=== PATIENT | female | born 1940 | race Caucasian/White ===

== ENCOUNTER 2018-01-15 09:59 | Inpatient (IN) | payer OTHER ==
--- NOTE | 2018-01-08 13:58 | HP ---
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 History Source: Patient Limitations to Obtaining History: No Limitations - Past Medical History Cardiovascular: Yes: Hyperlipdemia Gastrointestinal: Yes: GERD Musculoskeletal: Yes: Other (osteopenia) ENT: Yes: Other (allergies) Endocrine: Yes: Hypothyroidism - Past Surgical History Past Surgical History: Yes: Appendectomy, Stent (cardiac stents 2004) - Smoking History Smoking history: Never smoked Have you smoked in the past 12 months: No - Alcohol/Substance Use Hx Alcohol Use: Yes (social) Home Medications - Allergies Allergies/Adverse Reactions: Allergies Allergy/AdvReac Type Severity Reaction Status Date / Time No Known Allergies Allergy Verified 01/08/18 14:00 - Home Medications Home Medications (free text): plavix 75 mg,fluticasone spray,levothyroxine, pantoprazole,metoprolol,memantime Family Disease History - Family Disease History Family History: Denies Physical Examination Constitutional: Yes: No Distress Breast(s): Yes: Other (decrease size of left breast subareolar cancer and decrease in size of left axillary adenopathy, right breast negative) Problem List - Problems (1) Breast cancer, left Code(s): C50.912 - MALIGNANT NEOPLASM OF UNSPECIFIED SITE OF LEFT FEMALE BREAST Qualifiers: Breast location: combined nipple and areola Patient sex: female Assessment/Plan Left modified radical mastectomy without reconstruction
[2018-01-08 14:52] VITALS: BMI 25.0
[2018-01-15] MEDS ORDERED: MIDAZOLAM HCL 2 MG/2 ML SINGLE DOSE VIAL ONE (15:03)
[2018-01-15] MEDS ORDERED: SCOPOLAMINE HYDROBROMIDE 1 PATCH PATCH.TD72 ONE (15:03)
[2018-01-15] MEDS ORDERED: ceFAZolin SODIUM 1 GM VIAL ONE (15:20)
[2018-01-15] MEDS ORDERED: METOPROLOL TARTRATE 5 MG/5 ML VIAL ONE (15:26)
[2018-01-15] MEDS ORDERED: DEXAMETHASONE SOD PHOSPHATE 4 MG/1 ML VIAL ONE ×2 (15:49)
[2018-01-15] MEDS ORDERED: ONDANSETRON 4 MG/2 ML VIAL ONE ×2 (15:49)
[2018-01-15] MEDS ORDERED: KETOROLAC TROMETHAMINE 30 MG/1 ML VIAL ONE (16:05)
[2018-01-15] MEDS ORDERED: ZOLPIDEM TARTRATE 5 MG TABLET PO PRN (17:25)
[2018-01-15] MEDS ORDERED: ACETAMINOPHEN 325 MG TABLET (FP) PO PRN (17:25)
[2018-01-15] MEDS ORDERED: ONDANSETRON 4 MG/2 ML VIAL IVPUSH PRN ×3 (17:25→17:27)
[2018-01-15] MEDS ORDERED: PROMETHAZINE HCL 25 MG/1 ML VIAL IVPUSH ONE (17:29)
[2018-01-15] MEDS ORDERED: PATIENT'S OWN MEDICATION (NON-FORMULARY) (Alendronate Sodium/Vitamin D3 [Fosamax Plus D 70 PO SCH (17:30)
[2018-01-15] MEDS ORDERED: HYDROmorphone *PCA* 10MG/50ML DISP.SYRIN PCA SCH (17:30)
[2018-01-15] MEDS ORDERED: DEXTROSE 5%-0.45% SALINE 1,000 ML IV SCH (17:30)
[2018-01-15] MEDS: CEFAZOLIN 1 GM/D5W 1 GM/50 ML BAG IVPB SCH (20:53)
[2018-01-15] MEDS ORDERED: ATORVASTATIN CA 20 MG TABLET (FP) PO SCH (22:00)
--- NOTE | 2018-01-16 00:02 | OP ---
DATE OF OPERATION: 01/15/2018 PREOPERATIVE DIAGNOSIS: Left breast cancer, inflammatory. POSTOPERATIVE DIAGNOSIS: Left breast cancer, inflammatory. PROCEDURE: Left modified radical mastectomy without reconstruction. ANESTHESIA: General, intubated. ATTENDING SURGEON: Gabriela Meneses MD CONSULTING BUSINESS DEVELOPER: MIKAYLA Owens ESTIMATED BLOOD LOSS: Minimal. COMPLICATIONS: None. PROCEDURE: Patient was made aware of the risks and benefits of the procedure and consented. She was placed in the supine position. After general anesthesia was induced, the patient was intubated. An elliptical incision was made around the nipple and erythema surrounding the nipple. Using electrocautery the skin flaps were raised superior to the clavicle, medial to the sternum, lateral to the latissimus dorsi, and inferior to the inframammary fold. Using electrocautery, the breast tissue was taken off of the pectoralis muscle bilaterally, extending to the latissimus dorsi. The clavipectoral fascia was identified and incised. Superiorly there was the axillary vein and along the thoracic wall was the long thoracic nerve, which was identified and retracted medially, laterally thoracodorsal trunk could be seen and retracted laterally. Tissue between the two were bluntly and sharply dissected free with hemostasis maintained by electrocautery and medium Hemoclips. The specimen was then submitted with a short suture superior, long suture lateral. Palpation of the rest of the axilla revealed no other suspicious lymph nodes. The wound was copiously irrigated with normal saline. Hemostasis was maintained by electrocautery. Two number 2 Clifton-Evangelista drains were placed and secured through the inferior stab wounds and sutured to the skin with 2-0 silk. Skin was then closed with interrupted 2-0 Vicryl followed by running simple deep 3-0 Vicryl followed by running subcuticular 4-0 Monocryl. Steri-Strips, sterile dressing, and a compression bra were then applied. The patient, having tolerated the procedure well, was transferred to the recovery room in excellent condition. GABRIELA MENESES M.D. [id number]
[2018-01-16] MEDS: CEFAZOLIN 1 GM/D5W 1 GM/50 ML BAG IVPB SCH ×2 (02:58→09:57)
[2018-01-16] MEDS ORDERED: LEVOTHYROXINE NA 75 MCG TABLET (FP) PO SCH (07:00)
[2018-01-16] MEDS ORDERED: HEPARIN NA (PORCINE) 5,000 UNITS/ML 1ML VIAL SQ SCH (08:00)
[2018-01-16 08:26] LABS: MCH 28.8 pg (25.7-33.7); MCHC 32.1 g/dl (32.0-36.0); MEAN CELL VOLUME 89.7 fl (80-96); MEAN PLT VOLUME 7.6 fl (7.5-11.1); PLATELET COUNT 193 K/MM3 (134-434); RBC 3.12 M/mm3 (3.60-5.2); RDW 21.3 % (11.6-15.6); WHITE BLOOD COUNT 11.5 K/mm3 (4.0-10.8)
--- NOTE | 2018-01-16 09:33 | PN ---
Progress Note, Physician Chief Complaint: S/P Left MRM POD#1 History of Present Illness: Patient was seen today at the bedside and reports good pain control. She is tolerating po well. - Current Medication List Current Medications: Active Medications Acetaminophen (Tylenol -) 650 mg PO Q4H PRN PRN Reason: FEVER Atorvastatin Calcium (Lipitor -) 20 mg PO HS [facility] Last Admin: 01/15/18 21:27 Dose: 20 mg Heparin Sodium (Porcine) (Heparin -) 5,000 unit SQ BID@0800,2000 [facility] Hydromorphone HCl (Dilaudid Backshoe Person -) 0 mg UNDERWEAR TRIMMER UNDERWEAR TRIMMER [facility]; Protocol Stop: 01/22/18 17:28 Last Admin: 01/15/18 18:05 Dose: 0.2 mg Cefazolin Sodium (Ancef 1 Gm Premixed Ivpb -) 1 gm in 50 mls @ 100 mls/hr IVPB Q6H [facility] Stop: 01/16/18 09:29 Last Admin: 01/16/18 02:58 Dose: 100 mls/hr Dextrose/Sodium Chloride (D5-1/2ns -) 1,000 mls @ 100 mls/hr IV ASDIR [facility] Last Admin: 01/15/18 19:30 Dose: 100 mls/hr Influenza Virus Vaccine Quadrival (Flulaval Quad [id number]) 60 mcg IM .ONCE ONE Stop: 01/16/18 11:01 Levothyroxine Sodium (Synthroid -) 75 mcg PO ACBK [facility] Last Admin: 01/16/18 06:37 Dose: 75 mcg Metoprolol Succinate (Toprol Xl -) 50 mg PO DAILY [facility] Ondansetron HCl (Zofran Injection) 4 mg IVPUSH Q6H PRN PRN Reason: NAUSEA AND/OR VOMITING Pantoprazole Sodium (Protonix -) 40 mg PO DAILY [facility] Zolpidem Tartrate (Ambien -) 5 mg PO HS PRN PRN Reason: Insomnia - Objective Vital Signs: Vital Signs Temperature 98.1 F 01/16/18 06:00 Pulse Rate 78 01/16/18 06:00 Respiratory Rate 20 01/16/18 06:00 Blood Pressure 116/60 01/16/18 06:00 O2 Sat by Pulse Oximetry (%) 95 01/16/18 06:56 Constitutional: Yes: Well Nourished, Calm Breast(s): Yes: Left (Left breast flap warm with moderate ecchymosis noted. Steristrips are C/D/I. JPs x 2 with serosanginous discharge.) Labs: CBC, BMP 01/16/18 08:00 Problem List - Problems (1) Breast cancer, left Code(s): C50.912 - MALIGNANT NEOPLASM OF UNSPECIFIED SITE OF LEFT FEMALE BREAST Qualifiers: Breast location: combined nipple and areola Patient sex: female Assessment/Plan Plan: OOB today with assistance. Pain control as per anesthesia. IS 10 xs hourly Continue axbx CARLITOS teaching plan for discharge in am
[2018-01-16] MEDS ORDERED: PATIENT'S OWN MEDICATION (NON-FORMULARY) (Simvastatin [Simvastatin] 40 MG) PO SCH (10:00)
[2018-01-16] MEDS ORDERED: PANTOPRAZOLE 40 MG TABLET (FP) PO SCH (10:00)
[2018-01-16] MEDS ORDERED: FLU VACCINE QUAD 60 MCG/0.5 ML (MDV 18-19) IM ONE (11:00)
--- NOTE | 2018-01-16 11:20 | PN ---
Progress Note (short form) - Note Progress Note: 77F POD1 s/p left modified radical mastectomy under GA-ETT with dilaudid ACCELERATOR OPERATOR for post operative pain relief. Pt states that pain is well controlled and reports no anesthetic complications. AVSS. D/C ACCELERATOR OPERATOR today and start percocet prn.
[2018-01-16 14:18] VITALS: BP 128/60; PULSE 82; TEMP 98.2
--- NOTE | 2018-01-21 15:28 | PATH ---
Surgical Pathology Report Patient Name: JONNIE OLIVEIRA Med. Rec. #: [id number] /Age/Gender: 1940 (Age: 77) / F Account: [id number] Location: [facility] Taken: 01/15/2018 Received: 01/15/2018 Reported: 01/21/2018 Physicians: Keagan Meneses M.D. Specimen(s) Received LEFT BREAST MODIFIED RADICAL MASTECTOMY Clinical History Clinically inflammatory breast cancer Final Diagnosis Breast, Left, modified radical mastectomy: Invasive ductal carcinoma, poorly differentiated (tubule score: 3/3, nuclear grade: 3/3, mitotic score: 2/3; total score: 8/9, [place] grade 3). Invasive Carcinoma IS PRESENT IN THE LOWER INNER QUADRANT AND INVOLVES DEEP DERMIS OF SKIN AND NIPPLE. Invasive carcinoma measures 1.4 cm in greatest dimension, microscopically and is present admixed with and adjacent to foci of dense hyalinizing fibrosis and histiocytic reaction, consistent with partial treatment-related changes. Residual carcinoma comprises approximately 70% of the tumor bed tissue. RESIDUAL CARCINOMA shows PROMINENT treatment-effect with tumor cells SHOWING MARKED NUCLEAR ENLARGEMENT AND HYPERCHROMASIA, NUCLEAR PLEOMORPHISM, multi-nucleation and ABNORMAL mitotic figures. (See note) Focal ductal carcinoma in situ (DCIS), solid type, high nuclear grade, is present admixed with invasive carcinoma. Focal lymphovascular invasion and dermal lymphatic invasion is identified. (See note) Epidermis of nipple and skin are uninvolved by carcinoma. Surgical margins are uninvolved by carcinoma. FOURteen axillary lymph nodes, negative for metastatic carcinoma; thREe lymph nodes show foci of fibrous scarring and histiocytic reaction, consistent with treated foci of metastatic carcinoma. (0/14) Pathologic stage (yptnm): ypT4d ypN0. (See note) see also invasive carcinoma case summary below. Note: The carcinoma is positive for cytokeratin (AE1/3) immunostain (performed at [facility]); this findings support the diagnosis. The pathologic stage "4d" is based on clinical impression, gross findings and histologic evidence of dermal vascular invasion (focal). Comments Breast Invasive Carcinoma: Surgical Pathology Case Summary (Based on AJCC TNM 8 th edition) Procedure _X_ Total mastectomy (modified radical) Specimen Laterality _X_ Left Tumor Size _X_ Greatest dimension of largest invasive focus >1 mm: 14 mm Histologic Type _X_ Invasive carcinoma of no special type (ductal, not otherwise specified) Histologic Grade (Clau Histologic Score) Glandular (Acinar)/Tubular Differentiation _X_ Score 3 (<10% of tumor area forming glandular/tubular structures) Nuclear Pleomorphism _X_ Score 3 Mitotic Rate _X_ Score 2 Overall Grade _X_ Grade 3 (scores of 8 or 9) Tumor Focality _X_ Single focus of invasive carcinoma Ductal Carcinoma In Situ (DCIS) _X_ DCIS is present in specimen _X_ Negative for extensive intraductal component (EIC) Tumor Extension Skin _X_ Invasive carcinoma directly invades into the dermis or epidermis without skin ulceration (this does not change the T stage) Margins Invasive Carcinoma Margins _X_ Uninvolved by invasive carcinoma Distance from closest margin (millimeters): 37 mm from deep margin (gross measurement) DCIS Margins _X_ Uninvolved by DCIS Distance from closest margin (millimeters): 37 mm from deep margin (gross measurement) Regional Lymph Nodes Number of Lymph Nodes with Macrometastases (>2 mm): 0 Number of Lymph Nodes with Micrometastases (>0.2 mm to 2 mm and/or >200 cells): 0 Number of Lymph Nodes with Isolated Tumor Cells (=0.2 mm and =200 cells): 0 Extranodal Extension: _X_ Not identified Number of Lymph Nodes Examined: 14 Number of [place] Nodes Examined : 0 Treatment Effect Treatment Effect in the Breast _X_ Probable or definite response to presurgical therapy in the invasive carcinoma Treatment Effect in the Lymph Nodes _X_ No lymph node metastases. Fibrous scarring, possibly related to prior lymph node metastases with pathologic complete response Lymphovascular Invasion _X_ Present (focal dermal lymphatic invasion is identified) Pathologic Stage Classification (pTNM, AJCC 8th Edition) Primary Tumor (Invasive Carcinoma) (pT) _X_ypT4d: Inflammatory carcinoma Regional Lymph Nodes (pN) Category (pN) _X_ ypN0: No regional lymph node metastasis identified or ITCs only Biomarker Studies Results of ER and MD studies performed on this specimen (block 3) at [facility] are as follows: ER (clone [id number] mouse monoclonal antibody by [employer]): 0 % nuclear staining (Negative). MD (clone16 mouse monoclonal antibody by [employer]) : 0 % nuclear staining (Negative). Results of Her2 and Ki67 studies will be reported separately in an addendum. Positive and negative controls (internal if applicable) show appropriate results. Formalin fixation time is within current ASCO/CAP recommendations for ER, MD and Her2 testing. Time to formalin fixation (cold ischemic time) is not given. Electronically Signed Juanita Mcclain M.D. Gross Description Received in formalin, labeled "left modified mastectomy," is a 1033 gram, 26.0 x 23.0 x 7.0 cm. left mastectomy specimen with a short suture marking the superior aspect and a long suture marking the lateral aspect of the specimen, per the surgeon. The anterior surface displays a 16.0 x 8.5 cm kruse, elliptical portion of skin with a 1.4 cm diameter nipple. The skin immediately medial to the nipple displays a 3.2 x 2.0 cm focus of purple discoloration. There is a 7.5 x 5.0 x 1.2 cm portion of axillary fat attached to the lateral aspect of the specimen. The deep margin is inked black and the anterior soft tissue margin is inked blue. The specimen is serially sectioned from medial to lateral. Sectioning reveals a 1.8 x 1.4 x 1.0 cm kruse, ill-defined mass abutting the skin, medial and adjacent to the nipple in the lower inner quadrant (LIQ). The mass is 3.7 cm from the deep margin. The remaining breast parenchyma displays minimal fibrous tissue. Hospital Secretary sections are submitted in 26 cassettes as follows: 1-serially sectioned nipple; 2-subareolar shave; 3-full-face section of mass with skin; 3-8-bqggxwnahe mass with skin; 7-1-zcofdyewae lower inner quadrant; 9-10-upper inner quadrant; 11-12-upper outer quadrant; 13-14-lower outer quadrant; 15-anterior soft tissue margin; 16-additional skin; 17-deep margin; 18-22-one bisected lymph node each; 23- one trisected lymph node; 24-26-three lymph nodes each. Time to formalin fixation: Not given Total formalin fixation time: Approximately 26 hours 01/16/201801/16/2018
== END 2018-01-16 14:48 | disposition home or self-care (01) | DRG 583 ==
LOC: FM/S 09:59
PROVIDERS: ADMIT Surgery Surgical Oncology; ATTEND Surgery Surgical Oncology
PROC: 0HTU0ZZ Resection of Left Breast, Open Approach (ICD-10-PCS; principal; 2018-01-15 15:31)
DX: C50.912 Malignant neoplasm of unspecified site of left female breast (principal); K21.9 Gastro-esophageal reflux disease without esophagitis; E78.5 Hyperlipidemia, unspecified; Z92.21 Personal history of antineoplastic chemotherapy; M85.80 Other specified disorders of bone density and structure, unspecified site
CPT/HCPCS: 36415; 85027; 88307-TC; 88342-TC; 94760; J1644